=== PATIENT | male | born 1980 | race Caucasian/White ===

== ENCOUNTER 2018-04-23 19:33 | Emergency (ER) | payer OTHER ==
--- NOTE | 2018-04-23 20:45 | ED ---
Lower Extremity - HPI Summary HPI Summary: Complains of feeling a pop in the left calf area while running between bases during a game of baseball tonight. Denies any other injury or pain. Denies loss of sensation distally. - History of Current Complaint Chief Complaint: EDExtremityLower Stated Complaint: LT FOOT INJURY Time Seen by Provider: 04/23/18 19:49 Hx Obtained From: Patient Mechanism Of Injury: Other Onset of Pain: Immediate Onset/Duration: Minutes Severity Currently: Moderate Pain Intensity: 4 Pain Scale Used: 0-10 Numeric Timing: Constant Location: Is Discrete @ Character Of Pain: Dull Associated Signs And Symptoms: Positive: Negative Aggravating Factor(s): Ambulation - Allergies/Home Medications Allergies/Adverse Reactions: Allergies Allergy/AdvReac Type Severity Reaction Status Date / Time No Known Allergies Allergy Verified 04/23/18 19:51 Home Medications: Home Medications NK [No Home Medications Reported] 04/23/18 [History Confirmed 04/23/18] PMH/Surg Hx/FS Hx/Imm Hx Endocrine/Hematology History: Denies: Hx Anticoagulant Therapy Respiratory History: Denies: Hx Lung Cancer History: Denies: Hx Dialysis Neurological History: Denies: Hx CVA Infectious Disease History: No Infectious Disease History: Denies: Traveled Outside the [place] in Last 30 Days - Social History Alcohol Use: Weekly Substance Use Type: Reports: None Smoking Status (MU): Never Smoked Tobacco Review of Systems Constitutional: Negative Eyes: Negative ENT: Negative Cardiovascular: Negative Respiratory: Negative Gastrointestinal: Negative Genitourinary: Negative Musculoskeletal: Other Skin: Negative Neurological: Negative Psychological: Normal All Other Systems Reviewed And Are Negative: Yes Physical Exam - Summary Physical Exam Summary: Tenderness to palpation along lower left calf area. No ecchymosis, swelling, erythema, extra warmth noted to left knee, left ankle, left foot. Mild plantar flexion intact. Normal dorsiflexion intact. Palpation of the left Achilles tendon indicates rupture. Positive Iniguez's squeeze test Triage Information Reviewed: Yes Vital Signs On Initial Exam: Initial Vitals Temp Pulse Resp BP Pulse Ox 96.8 F 87 18 120/65 97 04/23/18 19:34 04/23/18 19:34 04/23/18 19:34 04/23/18 19:34 04/23/18 19:34 Vital Signs Reviewed: Yes Appearance: Positive: Well-Appearing Skin: Positive: Warm Head/Face: Positive: Normal Head/Face Inspection Eyes: Positive: Normal Neck: Positive: Supple Respiratory/Lung Sounds: Positive: Clear to Auscultation Cardiovascular: Positive: Normal Abdomen Description: Positive: Nontender Musculoskeletal: Positive: Normal Neurological: Positive: Normal Psychiatric: Positive: Normal AVPU Assessment: Alert - [place] Coma Scale Best Eye Response: 4 - Spontaneous Best Motor Response: 6 - Obeys Commands Best Verbal Response: 5 - Oriented Coma Scale Total: 15 Procedures - Splinting 1 Location: left lower extremity Hand-Made Type: orthoglass Splint: posterior walking - placed in position of mild plantar flexion Pre-Proc Neuro Vasc Exam: normal Post-Proc Neuro Vasc Exam: normal Diagnostics - Vital Signs Vital Signs Temp Pulse Resp BP Pulse Ox 04/23/18 19:34 96.8 F 87 18 120/65 97 - Laboratory Lab Statement: Any lab studies that have been ordered have been reviewed, and results considered in the medical decision making process. Lower Extremity Course/Dx - Course Course Of Treatment: Complains of feeling a pop in the left calf area while running between bases during a game of baseball tonight. Denies any other injury or pain. Denies loss of sensation distally. PE: Tenderness to palpation along lower left calf area. No ecchymosis, swelling, erythema, extra warmth noted to left knee, left ankle, left foot. Mild plantar flexion intact. Normal dorsiflexion intact. Palpation of the left Achilles tendon indicates rupture. Positive Iniguez's squeeze test. PLAN: short posterior splint placed with mild plantar flexion. Crutches. Follow-up with orthopedics Dr. Triplett Tuesday. Ibuprofen for pain - Diagnoses Provider Diagnoses: Achilles tendon rupture Discharge - Sign-Out/Discharge Documenting (check all that apply): Patient Departure - Discharge Plan Condition: Stable Disposition: HOME Patient Education Materials: Achilles Tendon Rupture (ED) Referrals: No Primary Care Phys,NOPCP [Primary Care Provider] - Mark Triplett MD [Medical Doctor] - Additional Instructions: Follow-up Tuesday with Dr. Triplett orthopedics for further evaluation of Achilles tendon rupture. Ibuprofen for pain. Return to the ED for any new or worsening symptoms - Billing Disposition and Condition Condition: STABLE Disposition: Home
[2018-04-23 21:14] VITALS: BP 104/63
== END 2018-04-23 21:13 | disposition home or self-care (01) ==
LOC: ED 19:33
DX: S86.012A Strain of left Achilles tendon, initial encounter (principal); X58.XXXA Exposure to other specified factors, initial encounter; Y93.64 Activity, baseball; Y92.320 Baseball field as the place of occurrence of the external cause
CPT/HCPCS: 99282